=== PATIENT | male | born 2005 | race Caucasian/White ===

== ENCOUNTER 2025-01-08 03:07 | Emergency (ER) | payer SELFPAY ==
[~2025-01-08] VITALS: Ht 177.8 cm; Wt 86.4 kg
[2025-01-08 03:10] VITALS: BP 143/73; PULSE 105; RESP 22; TEMP 98.1; O2SAT 99
[2025-01-08] MEDS: ALBUTEROL SULFATE HFA 90 MCG/PUFF 8 GM INHALER IH ONE (03:40)
== END 2025-01-08 04:05 | disposition home or self-care (01) ==
LOC: EMS 03:07
DX: F10.129 Alcohol abuse with intoxication, unspecified (principal); J45.909 Unspecified asthma, uncomplicated; R06.02 Shortness of breath; Y90.9 Presence of alcohol in blood, level not specified; Z72.89 Other problems related to lifestyle
CPT/HCPCS: 99283; 94640; J3535